=== PATIENT | male | born 1950 | race Caucasian/White ===

== ENCOUNTER 2017-06-30 09:19 | Emergency (ER) | payer MEDICARE ==
[2017-06-30 09:49] VITALS: BP 134/61
--- NOTE | 2017-06-30 10:07 | UC ---
Back Pain HPI - HPI Summary HPI Summary: felt a muscle pull at work lifting a heavy object, pain is located in the right lower lumbar region - History of Current Complaint Chief Complaint: UCBackPain Stated Complaint: BACK PAIN Time Seen by Provider: 06/30/17 09:38 Hx Obtained From: Patient Onset/Duration: Sudden Onset, Lasting Days Timing: Constant Severity Initially: Moderate Severity Currently: Moderate Back Pain: Is Discrete @ - left lumbar Character: Dull, Spasmodic Aggravating Factor(s): Movement - Allergies/Home Medications Allergies/Adverse Reactions: Allergies Allergy/AdvReac Type Severity Reaction Status Date / Time Cephalexin [From Keflex] Allergy Hives Verified 06/30/17 09:43 Home Medications: Home Medications Furosemide TAB* [Lasix TAB*] 20 mg PO DAILY 06/30/17 [History Confirmed 06/30/17 ] Sitagliptin-Metformin HCl [Janumet 50-1000 mg] 1 tab PO BID 06/30/17 [History Confirmed 06/30/17] PMH/Surg Hx/FS Hx/Imm Hx Previously Healthy: Yes - Surgical History Surgical History: Yes Surgery Procedure, Year, and Place: t&a and appy as child, R wrist surgery r/t fx - Family History Known Family History: Positive: Cardiac Disease - Social History Alcohol Use: Occasionally Substance Use Type: None Smoking Status (MU): Former Smoker Have You Smoked in the Last Year: No When Did the Patient Quit Smoking/Using Tobacco: 2000 - Immunization History Most Recent Influenza Vaccination: May 2017 Review of Systems Constitutional: Negative Skin: Negative Eyes: Negative ENT: Negative Respiratory: Negative Cardiovascular: Negative Gastrointestinal: Negative Genitourinary: Negative Motor: Negative Neurovascular: Negative Musculoskeletal: Arthralgia, Myalgia Neurological: Negative Psychological: Negative Is Patient Immunocompromised?: No All Other Systems Reviewed And Are Negative: Yes Physical Exam Triage Information Reviewed: Yes Appearance: Well-Appearing, Pain Distress, Obese Vital Signs: Initial Vital Signs Temp 97.8 F 06/30/17 09:41 Pulse 60 06/30/17 09:41 Resp 16 06/30/17 09:41 BP 134/61 06/30/17 09:41 Pulse Ox 99 06/30/17 09:41 Vital Signs Reviewed: Yes Eye Exam: Normal ENT Exam: Normal Dental Exam: Normal Neck exam: Normal Respiratory Exam: Normal Cardiovascular Exam: Normal Abdominal Exam: Normal Bowel Sounds: Positive: Present Musculoskeletal: Positive: No Edema - palpable spasm, ROM Limited @ - painful to extend, Neurological Exam: Normal Psychological Exam: Normal Skin Exam: Normal Back Pain Course/Dx - Course Course Of Treatment: hx obtained, exam performed, meds reviewed, treated for muscle strain. - Differential Dx/Diagnosis Differential Diagnosis/HQI/PQRI: Fracture, Herniated Disc, Sprain Provider Diagnoses: lumbar strain Discharge - Discharge Plan Condition: Stable Disposition: HOME Prescriptions: Cyclobenzaprine HCl [Flexeril 5 mg (NF)] 5 mg PO BID #14 tab Patient Education Materials: Lower Back Exercises (ED), Acute Low Back Pain (ED ) Referrals: Patricia Mccarthy MD [Primary Care Provider] - Additional Instructions: 1. heat the low back and stretch. 2. you can use ibuprofen 400 mg with tylenol 500 mg together every 6-8 hours. 3. bend at the knees 4. If not improving with rest, follow up.
== END 2017-06-30 10:16 | disposition home or self-care (01) ==
LOC: UCCORT 09:19
DX: S39.012A Strain of muscle, fascia and tendon of lower back, initial encounter (principal); Z87.891 Personal history of nicotine dependence; Z88.1 Allergy status to other antibiotic agents; X50.0XXA Overexertion from strenuous movement or load, initial encounter; Y92.9 Unspecified place or not applicable
CPT/HCPCS: 99212; G0463

== ENCOUNTER 2023-10-20 10:11 | Observation (INO) ==
[2023-10-20] MEDS ORDERED: ceFAZolin 2 GM PREMIX 2 GM/50 ML BAG ONE (10:44)
[2023-10-20 10:52] LABS: Rapid COVID-19 Molecular Undetected (Undetected)
[2023-10-20] MEDS ORDERED: Propofol 10 MG/ML 20 ML BTL ONE ×2 (11:42→15:12)
[2023-10-20] MEDS ORDERED: Lidocaine 2% PF 5 ML VIAL ONE (11:42)
[2023-10-20] MEDS ORDERED: Midazolam 2 mg/2 ml VIAL 1 mg/ml 2 ml VIAL (2 mg) ONE ×2 (11:42→13:27)
[2023-10-20] MEDS ORDERED: fentaNYL 100 mcg/2 ml 50 MCG/ML VIAL ONE ×2 (11:43→17:52)
[2023-10-20] MEDS ORDERED: Ondansetron 4 mg VIAL 2 MG/ML 2 ml VIAL IV PRN ×2 (11:51→16:59)
[2023-10-20] MEDS ORDERED: Naloxone 0.4 mg VIAL 0.4 mg/ml 1 ml VIAL IV PRN (11:51)
[2023-10-20] MEDS ORDERED: HYDROmorphone 1 MG/1 ML SYRINGE IV PRN (11:51)
[2023-10-20] MEDS ORDERED: ROPIVACAINE 5 MG/ML 30 ML BTL (0.5%) ONE ×2 (13:00→13:27)
[2023-10-20] MEDS ORDERED: ceFAZolin 1 GM in Dextrose 1 GM/50 ML BAG ONE (13:35)
[2023-10-20] MEDS ORDERED: fentaNYL 250 mcg/5 ml 50 MCG/ML 5 ml VIAL (250 MCG) ONE (14:27)
[2023-10-20] MEDS ORDERED: Bupivacaine-MPF SPINAL 7.5 MG/ML - 2ML AMP ONE (16:00)
[2023-10-20] MEDS ORDERED: Magnesium Hydroxide LIQ 30 ML UDC PO PRN (16:59)
[2023-10-20] MEDS ORDERED: Ondansetron ODT 4 mg TAB 4 MG TAB PO PRN (16:59)
[2023-10-20] MEDS ORDERED: Lactulose 30 ml UDC PO PRN (16:59)
[2023-10-20] MEDS: fentaNYL 100 mcg/2 ml 50 MCG/ML VIAL IV PRN (17:56)
[2023-10-20] MEDS ORDERED: Acetaminophen IV 1 GM/100ML 1,000 MG/100 ML BAG IV ONE (18:37)
[2023-10-20] MEDS: Acetaminophen IV 1 GM/100ML 1,000 MG/100 ML BAG IV PRN (18:41)
[2023-10-20] MEDS: Magnesium Hydroxide LIQ 30 ML UDC PO SCH (20:32)
[2023-10-20] MEDS: Lactated Ringers 1000 ml BAG 1,000 ML IV SCH ×2 (20:43→21:15)
[2023-10-20] MEDS: Buffered Lidocaine 1% SYRIN 1 ml INTRADERM ONE (20:43)
[2023-10-20] MEDS: ceFAZolin 1 GM ADVAN 1 GM in NS 0.9% 50 ML 50 ML IVPB SCH (22:45)
[2023-10-21] MEDS: Morphine 2 MG/ML SYRINGE IV PRN
[2023-10-21 06:24] LABS: Hematocrit 36.8 % (38-53); Platelet Count 197 10^3/uL (150-450)
[2023-10-21 07:20] LABS: Calcium 8.7 mg/dL (8.6-10.3); Creatinine, Serum 1.78 mg/dL (0.67-1.17); Potassium 5.1 mmol/L (3.5-5.0); eGFR CKD-EPI 40.3 (>60)
[2023-10-21] MEDS: Vitamin THERAPEUTIC TAB PO SCH (08:21)
[2023-10-21] MEDS: CMCS: DAPAGLIFLOZIN 10 MG TAB (NF) PO SCH (08:24)
[2023-10-21 10:52] VITALS: BP 144/74
== END 2023-10-21 14:05 | disposition home or self-care (01) ==
LOC: SSU 10:11 → OR 10:11
PROVIDERS: ADMIT Orthopaedic Surgery Adult Reconstructive Orthopaedic Surgery; ATTEND Orthopaedic Surgery Adult Reconstructive Orthopaedic Surgery

== ENCOUNTER 2024-01-20 19:57 | Inpatient (IN) ==
[2024-01-20] MEDS ORDERED: Vancomycin 2,000 MG in NS 0.9% 250 ml 250 ML IVPB ONE (21:00)
[2024-01-20] MEDS ORDERED: Vancomycin 2,000 MG in NS 0.9% 250 ml 250 ML IVPB SCH (21:00)
[2024-01-20] MEDS ORDERED: Zosyn per Pharmacy NOTE FOLLOW UP SCH (21:00)
[2024-01-20] MEDS: Piperacillin/Tazobac 3.375 BAG 3.375 GM/100 ML BAG IV ONE (21:05)
[2024-01-20] MEDS ORDERED: Vancomycin per Pharmacy 1 EA NOTE FOLLOW UP PRN (21:07)
[2024-01-20 21:12] LABS: ABS Eosinophils 0.1 10^3/uL (0.0-0.5); ABS Monocytes 0.8 10^3/uL (0.0-1.1); ABS Nucleated RBC 0.01 10^3/ul; Eosinophil % 0.9 %; Hematocrit 34.4 % (38-53); Hemoglobin 11.1 g/dL (13.2-16.3); Lymphocyte % 8.8 %; Mean Corpuscular Hemoglobin 26.6 pg (27-33); Mean Corpuscular Hgb Conc 32.4 g/dL (31-36); Mean Corpuscular Volume 82.3 fL (80-97); Mean Platelet Volume 7.5 fL (7.5-11.2); Platelet Count 281 10^3/uL (150-450); Red Blood Count 4.19 10^6/uL (4.06-5.63); Red Cell Distribution Width 18.4 % (12-17); White Blood Count 10.9 10^3/uL (3.6-10.2)
[2024-01-20] MEDS: Lactated Ringers 1000 ml BAG 1,000 ML IV ONE ×2 (21:15→23:11)
[2024-01-20 21:36] LABS: Urine Appearance Clear; Urine Bilirubin Negative (Negative); Urine Blood Negative (Negative); Urine Color Light-Yellow; Urine Glucose 4+ (>=1000 mg/dL) (Negative); Urine Ketones Negative (Negative); Urine Nitrite Negative (Negative); Urine Protein Trace (Negative); Urine Urobilinogen Negative (Negative)
[2024-01-20 21:47] LABS: Activated Partial Thrombo Time 37.1 seconds (26.0-38.0)
[2024-01-20 21:50] LABS: INR 1.56 (0.83-1.13)
[2024-01-20 22:03] LABS: Albumin 3.5 g/dL (3.2-5.2); C Reactive Protein 144.72 mg/L (<8.01); Calcium 8.5 mg/dL (8.6-10.3); Creatinine, Serum 1.85 mg/dL (0.67-1.17); Globulin 3.4 g/dL (2-4); Potassium 4.6 mmol/L (3.5-5.0); Total Bilirubin 0.5 mg/dL (0.2-1.0); Total Protein 6.9 g/dL (6.4-8.9); eGFR CKD-EPI 38.5 (>60)
[2024-01-20] MEDS: Vancomycin 2,000 MG in NS 0.9% 500 ml BAG 500 ML IVPB ONE (22:30)
[2024-01-20] MEDS: Digoxin IV 0.5 MG/2 ML AMP (0.25 MG/ML) IV SLOW PU ONE (22:33)
[2024-01-21] MEDS: ZOSYN 3.375 GM Q8H per EXTENDED INFUSION IV SCH (01:30)
[2024-01-21] MEDS ORDERED: Dextrose 50% Syringe 50 ml 25 GM/50 ML SYRINGE IV PUSH PRN (02:37)
[2024-01-21] MEDS: Lactated Ringers 1000 ml BAG 1,000 ML IV ONE ×2 (03:09→14:48)
[2024-01-21 04:08] LABS: High Sensitivity Troponin 1 Hr 9 pg/mL (<20)
[2024-01-21 05:33] LABS: ABS Basophils 0.1 10^3/uL (0.0-0.1); ABS Eosinophils 0.1 10^3/uL (0.0-0.5); ABS Lymphocytes 1.9 10^3/uL (1.0-4.8); ABS Neutrophils 7.5 10^3/uL (1.5-7.6); ABS Nucleated RBC 0.01 10^3/ul; Eosinophil % 1.1 %; Hematocrit 31.7 % (38-53); Hemoglobin 10.3 g/dL (13.2-16.3); Lymphocyte % 17.5 %; Mean Corpuscular Hgb Conc 32.6 g/dL (31-36); Mean Corpuscular Volume 82.8 fL (80-97); Mean Platelet Volume 7.3 fL (7.5-11.2); Nucleated Red Blood Cells % 0.1 %/100WBC (0.0-0.8); Platelet Count 224 10^3/uL (150-450); Red Blood Count 3.83 10^6/uL (4.06-5.63); Red Cell Distribution Width 17.9 % (12-17); White Blood Count 10.6 10^3/uL (3.6-10.2)
[2024-01-21 06:09] LABS: ALT 7 U/L (7-52); AST 10 U/L (13-39); Albumin 3.1 g/dL (3.2-5.2); Albumin/Globulin Ratio 1.2 (1-3); Alkaline Phosphatase 55 U/L (35-149); Anion Gap 6 mmol/L (2-16); Blood Urea Nitrogen 23 mg/dL (6-24); CO2 Carbon Dioxide 27 mmol/L (22-32); Calcium 8.2 mg/dL (8.6-10.3); Chloride 106 mmol/L (101-111); Creatinine, Serum 1.65 mg/dL (0.67-1.17); Globulin 2.6 g/dL (2-4); Glucose 61 mg/dL (70-100); Sodium 139 mmol/L (135-145); Total Bilirubin 0.6 mg/dL (0.2-1.0); Total Protein 5.7 g/dL (6.4-8.9); eGFR CKD-EPI 44.1 (>60)
[2024-01-21 06:51] LABS: % Iron Saturation 8 % (15-55); .Transferrin 176 mg/dL (203-362); Iron < 20 ug/dL (50-212); Total Iron Binding Capacity 246 mcg/dL (250-450); Unsaturated Iron Binding 226 ug/dL
[2024-01-21 07:11] LABS: Ferritin 77.9 ng/mL (24-336)
[2024-01-21] MEDS: Vancomycin 1,500 MG in NS 0.9% 250 ml 250 ML IVPB SCH ×2 (23:16→23:20)
[2024-01-22] MEDS: Acetaminophen IV 1 GM/100ML 1,000 MG/100 ML BAG IV ONE (01:51)
[2024-01-22 06:51] LABS: ABS Basophils 0.1 10^3/uL (0.0-0.1); ABS Eosinophils 0.2 10^3/uL (0.0-0.5); ABS Lymphocytes 1.6 10^3/uL (1.0-4.8); ABS Monocytes 0.9 10^3/uL (0.0-1.1); ABS Neutrophils 7.4 10^3/uL (1.5-7.6); ABS Nucleated RBC 0.01 10^3/ul; Eosinophil % 1.6 %; Hematocrit 32.1 % (38-53); Hemoglobin 10.4 g/dL (13.2-16.3); Lymphocyte % 16.2 %; Mean Corpuscular Hgb Conc 32.4 g/dL (31-36); Mean Corpuscular Volume 83.2 fL (80-97); Mean Platelet Volume 7.8 fL (7.5-11.2); Nucleated Red Blood Cells % 0.1 %/100WBC (0.0-0.8); Platelet Count 210 10^3/uL (150-450); Red Blood Count 3.85 10^6/uL (4.06-5.63); Red Cell Distribution Width 18.3 % (12-17); White Blood Count 10.2 10^3/uL (3.6-10.2)
[2024-01-22 07:19] LABS: Anion Gap 10 mmol/L (2-16); Blood Urea Nitrogen 21 mg/dL (6-24); CO2 Carbon Dioxide 27 mmol/L (22-32); Calcium 8.3 mg/dL (8.6-10.3); Chloride 103 mmol/L (101-111); Creatinine, Serum 1.61 mg/dL (0.67-1.17); Glucose 78 mg/dL (70-100); Sodium 140 mmol/L (135-145); eGFR CKD-EPI 45.4 (>60)
[2024-01-22 08:34] LABS: Magnesium 2.1 mg/dL (1.9-2.7); Potassium Redraw 4.3 mmol/L (3.5-5.0)
[2024-01-22] MEDS: CMC:DAPAGLIFLOZIN 10 MG TAB (NF) PO SCH (09:14)
[2024-01-22] MEDS ORDERED: Sulfur Hexaflouride MICROSPHR 25 MG VIAL IV ONE (11:33)
[2024-01-22] MEDS: Metoprolol Tartrate 5 mg VIAL 5 ml VIAL (1 mg/ml) IV ONE (17:08)
[2024-01-22] MEDS: Metoprolol Tartrate 5 mg VIAL 5 ml VIAL (1 mg/ml) IV PRN (20:12)
[2024-01-23 06:14] LABS: ABS Basophils 0.1 10^3/uL (0.0-0.1); ABS Eosinophils 0.2 10^3/uL (0.0-0.5); ABS Lymphocytes 1.4 10^3/uL (1.0-4.8); ABS Monocytes 0.9 10^3/uL (0.0-1.1); Eosinophil % 1.9 %; Hematocrit 29.9 % (38-53); Hemoglobin 9.7 g/dL (13.2-16.3); Lymphocyte % 14.9 %; Mean Corpuscular Hgb Conc 32.5 g/dL (31-36); Mean Corpuscular Volume 83.1 fL (80-97); Mean Platelet Volume 7.7 fL (7.5-11.2); Platelet Count 197 10^3/uL (150-450); Red Cell Distribution Width 18.1 % (12-17); White Blood Count 9.5 10^3/uL (3.6-10.2)
[2024-01-23 06:38] LABS: Calcium 8.2 mg/dL (8.6-10.3); Creatinine, Serum 1.63 mg/dL (0.67-1.17); Potassium 4.3 mmol/L (3.5-5.0); eGFR CKD-EPI 44.8 (>60)
[2024-01-23] MEDS: Sulfur Hexaflouride MICROSPHR 25 MG VIAL IV ONE (10:45)
[2024-01-23] MEDS: Vancomycin Trough Check NOTE FOLLOW UP ONE (23:39)
[2024-01-24 06:10] LABS: ABS Eosinophils 0.2 10^3/uL (0.0-0.5); ABS Lymphocytes 1.4 10^3/uL (1.0-4.8); ABS Monocytes 0.8 10^3/uL (0.0-1.1); ABS Neutrophils 5.9 10^3/uL (1.5-7.6); Eosinophil % 2.5 %; Hematocrit 29.3 % (38-53); Hemoglobin 9.5 g/dL (13.2-16.3); Lymphocyte % 16.6 %; Mean Corpuscular Hemoglobin 26.6 pg (27-33); Mean Corpuscular Hgb Conc 32.3 g/dL (31-36); Mean Corpuscular Volume 82.4 fL (80-97); Mean Platelet Volume 7.7 fL (7.5-11.2); Platelet Count 215 10^3/uL (150-450); Red Blood Count 3.56 10^6/uL (4.06-5.63); Red Cell Distribution Width 17.9 % (12-17); White Blood Count 8.3 10^3/uL (3.6-10.2)
[2024-01-24 07:35] LABS: Calcium 8.2 mg/dL (8.6-10.3); Creatinine, Serum 1.43 mg/dL (0.67-1.17); Magnesium 1.9 mg/dL (1.9-2.7); Potassium 4.4 mmol/L (3.5-5.0); eGFR CKD-EPI 52.4 (>60)
[2024-01-24] MEDS: Magnesium Sulfate 2 gm BAG 2 GM/50 ML BAG IVPB ONE (10:03)
[2024-01-24] MEDS: Enoxaparin 100 MG/ML SYR SUBCUT SCH (12:41)
[2024-01-24] MEDS: Iodixanol (CONTRAST) 320 MG/ML 100 ML SDV IV ONE (16:07)
[2024-01-25 06:33] LABS: ABS Basophils 0.1 10^3/uL (0.0-0.1); ABS Eosinophils 0.2 10^3/uL (0.0-0.5); ABS Lymphocytes 1.3 10^3/uL (1.0-4.8); ABS Monocytes 0.8 10^3/uL (0.0-1.1); ABS Neutrophils 6.2 10^3/uL (1.5-7.6); ABS Nucleated RBC 0.01 10^3/ul; Eosinophil % 2.9 %; Hematocrit 29.8 % (38-53); Hemoglobin 9.6 g/dL (13.2-16.3); Lymphocyte % 15.1 %; Mean Corpuscular Hemoglobin 26.4 pg (27-33); Mean Corpuscular Hgb Conc 32.2 g/dL (31-36); Mean Corpuscular Volume 82.1 fL (80-97); Mean Platelet Volume 7.5 fL (7.5-11.2); Nucleated Red Blood Cells % 0.1 %/100WBC (0.0-0.8); Platelet Count 229 10^3/uL (150-450); Red Blood Count 3.63 10^6/uL (4.06-5.63); Red Cell Distribution Width 18.2 % (12-17); White Blood Count 8.6 10^3/uL (3.6-10.2)
[2024-01-25 07:17] LABS: Calcium 8.4 mg/dL (8.6-10.3); Creatinine, Serum 1.25 mg/dL (0.67-1.17); Magnesium 2.2 mg/dL (1.9-2.7); Potassium 4.4 mmol/L (3.5-5.0); eGFR CKD-EPI 61.6 (>60)
[2024-01-26 08:15] LABS: ABS Basophils 0.1 10^3/uL (0.0-0.1); ABS Eosinophils 0.3 10^3/uL (0.0-0.5); ABS Monocytes 0.6 10^3/uL (0.0-1.1); ABS Nucleated RBC 0.01 10^3/ul; Eosinophil % 4.4 %; Hematocrit 31.6 % (38-53); Lymphocyte % 14.6 %; Mean Corpuscular Hemoglobin 26.5 pg (27-33); Mean Corpuscular Hgb Conc 31.8 g/dL (31-36); Mean Corpuscular Volume 83.4 fL (80-97); Mean Platelet Volume 7.7 fL (7.5-11.2); Nucleated Red Blood Cells % 0.1 %/100WBC (0.0-0.8); Platelet Count 245 10^3/uL (150-450); Red Blood Count 3.79 10^6/uL (4.06-5.63); Red Cell Distribution Width 18.3 % (12-17); White Blood Count 7.1 10^3/uL (3.6-10.2)
[2024-01-26 08:33] LABS: Calcium 8.3 mg/dL (8.6-10.3); Creatinine, Serum 1.17 mg/dL (0.67-1.17); Potassium 4.7 mmol/L (3.5-5.0); eGFR CKD-EPI 66.6 (>60)
[2024-01-26] MEDS: Vancomycin Trough Check NOTE FOLLOW UP ONE (08:56)
[2024-01-27 06:27] LABS: ABS Basophils 0.1 10^3/uL (0.0-0.1); ABS Eosinophils 0.3 10^3/uL (0.0-0.5); ABS Lymphocytes 1.1 10^3/uL (1.0-4.8); ABS Monocytes 0.7 10^3/uL (0.0-1.1); ABS Neutrophils 4.8 10^3/uL (1.5-7.6); ABS Nucleated RBC 0.01 10^3/ul; Eosinophil % 4.5 %; Hemoglobin 9.6 g/dL (13.2-16.3); Lymphocyte % 15.5 %; Mean Corpuscular Hemoglobin 25.9 pg (27-33); Mean Corpuscular Hgb Conc 31.1 g/dL (31-36); Mean Corpuscular Volume 83.2 fL (80-97); Mean Platelet Volume 7.7 fL (7.5-11.2); Nucleated Red Blood Cells % 0.1 %/100WBC (0.0-0.8); Platelet Count 268 10^3/uL (150-450); Red Blood Count 3.73 10^6/uL (4.06-5.63); Red Cell Distribution Width 18.3 % (12-17)
[2024-01-27 08:38] LABS: Calcium 8.1 mg/dL (8.6-10.3); Magnesium 1.9 mg/dL (1.9-2.7); Potassium 4.7 mmol/L (3.5-5.0)
[2024-01-27 09:13] LABS: Creatinine, Serum 1.09 mg/dL (0.67-1.17); eGFR CKD-EPI 72.6 (>60)
[2024-01-27] MEDS: Magnesium Sulfate IV 1GM/100ML 1 GM/100 ML BAG IV ONE (11:01)
[2024-01-27] MEDS ORDERED: Naloxone 0.4 mg VIAL 0.4 mg/ml 1 ml VIAL IV PRN (11:52)
[2024-01-27] MEDS ORDERED: fentaNYL 100 mcg/2 ml 50 MCG/ML VIAL IV PRN (11:52)
[2024-01-27] MEDS ORDERED: Ondansetron 4 mg VIAL 2 MG/ML 2 ml VIAL IV PRN (11:52)
[2024-01-27] MEDS ORDERED: Lidocaine 2% PF 5 ML VIAL ONE (13:21)
[2024-01-27] MEDS ORDERED: Propofol 10 MG/ML 20 ML BTL ONE (13:21)
[2024-01-27] MEDS ORDERED: Midazolam 2 mg/2 ml VIAL 1 mg/ml 2 ml VIAL (2 mg) ONE (13:22)
[2024-01-27] MEDS ORDERED: fentaNYL 100 mcg/2 ml 50 MCG/ML VIAL ONE (13:22)
[2024-01-27] MEDS ORDERED: Rocuronium 50 mg VIAL 10 mg/ml 5 ml VIAL (50 mg) ONE ×2 (14:47→14:53)
[2024-01-27] MEDS ORDERED: Dexamethasone IV 4 MG/ML VIAL 1 ml VIAL ONE (15:21)
[2024-01-27] MEDS ORDERED: Ondansetron 4 mg VIAL 2 MG/ML 2 ml VIAL ONE (15:21)
[2024-01-27] MEDS: Lactated Ringers 1000 ml BAG 1,000 ML IV SCH (16:45)
[2024-01-27] MEDS: Scopolamine 1 mg/72hr PATCH TRANSDERM ONE (16:45)
[2024-01-27] MEDS: Buffered Lidocaine 1% SYRIN 1 ml INTRADERM ONE (16:48)
[2024-01-27 17:03] VITALS: BP 152/87
[2024-01-27] MEDS ORDERED: Vancomycin Trough Check NOTE FOLLOW UP ONE (21:30)
== END 2024-01-27 17:40 | disposition home or self-care (01) | DRG 853 ==
LOC: ED 19:57 → EDHOLD 19:57 → SUATTDRO 01-21 00:31 → MEDTELE 01-21 14:27
PROVIDERS: ADMIT Student in an Organized Health Care Education/Training Program; ATTEND Internal Medicine

== ENCOUNTER 2024-02-11 09:55 | Inpatient (IN) ==
[2024-02-11] MEDS: Lactated Ringers SEPSIS* BAG 2,260 ML IV ONE (10:58)
[2024-02-11 11:11] LABS: ABS Eosinophils 0.1 10^3/uL (0.0-0.5); ABS Lymphocytes 0.2 10^3/uL (1.0-4.8); ABS Monocytes 0.7 10^3/uL (0.0-1.1); ABS Neutrophils 10.9 10^3/uL (1.5-7.6); ABS Nucleated RBC 0.01 10^3/ul; Eosinophil % 0.8 %; Hematocrit 33.5 % (38-53); Hemoglobin 10.4 g/dL (13.2-16.3); Lymphocyte % 1.7 %; Mean Corpuscular Hemoglobin 25.9 pg (27-33); Mean Corpuscular Hgb Conc 31.2 g/dL (31-36); Mean Corpuscular Volume 82.9 fL (80-97); Mean Platelet Volume 7.4 fL (7.5-11.2); Nucleated Red Blood Cells % 0.1 %/100WBC (0.0-0.8); Platelet Count 169 10^3/uL (150-450); Red Blood Count 4.04 10^6/uL (4.06-5.63); Red Cell Distribution Width 18.8 % (12-17); White Blood Count 11.9 10^3/uL (3.6-10.2)
[2024-02-11 11:19] LABS: Activated Partial Thrombo Time 34.9 seconds (26.0-38.0); INR 1.52 (0.83-1.13)
[2024-02-11 11:36] LABS: High Sens Troponin Baseline 49 pg/mL (<20)
[2024-02-11 11:52] LABS: ALT 12 U/L (7-52); AST 15 U/L (13-39); Albumin 3.4 g/dL (3.2-5.2); Albumin/Globulin Ratio 1.1 (1-3); Alkaline Phosphatase 47 U/L (35-149); Anion Gap 14 mmol/L (2-16); Blood Urea Nitrogen 36 mg/dL (6-24); C Reactive Protein 77.21 mg/L (<8.01); CO2 Carbon Dioxide 23 mmol/L (22-32); Calcium 8.2 mg/dL (8.6-10.3); Chloride 100 mmol/L (101-111); Creatinine, Serum 2.93 mg/dL (0.67-1.17); Glucose 114 mg/dL (70-100); Lipase < 10 U/L (11.0-82.0); Potassium 4.5 mmol/L (3.5-5.0); Sodium 137 mmol/L (135-145); Total Bilirubin 0.7 mg/dL (0.2-1.0); Total Protein 6.4 g/dL (6.4-8.9); eGFR CKD-EPI 22.2 (>60)
[2024-02-11] MEDS: Vancomycin 2,000 MG in NS 0.9% 500 ml BAG 500 ML IVPB ONE (12:09)
[2024-02-11 13:04] LABS: High Sensitivity Troponin 1 Hr 56 pg/mL (<20)
[2024-02-11] MEDS: Ondansetron 4 mg VIAL 2 MG/ML 2 ml VIAL IV ONE (15:41)
[2024-02-11] MEDS: Acetaminophen IV 1 GM/100ML 1,000 MG/100 ML BAG IV ONE (15:41)
[2024-02-11] MEDS: Clindamycin 900 MG/D5W BAG 900 MG/50 ML BAG IVPB ONE (16:22)
[2024-02-11] MEDS: Norepinephrine 4 MG/250mL D5W 4,000 MCG/250 ML BAG IV SCH (17:16)
[2024-02-11 17:44] LABS: High Sensitivity Troponin 3 Hr 80 pg/mL (<20)
[2024-02-11] MEDS: Famotidine IV 10 MG/ML 2 ml VIAL (20 mg) IV SLOW PU ONE (17:58)
[2024-02-11] MEDS: Piperacillin/Tazobac 3.375 BAG 3.375 GM/100 ML BAG IV ONE (18:32)
[2024-02-11] MEDS ORDERED: Vancomycin per Pharmacy 1 EA NOTE FOLLOW UP SCH (19:00)
[2024-02-11] MEDS ORDERED: Zosyn per Pharmacy NOTE FOLLOW UP SCH (19:00)
[2024-02-11] MEDS ORDERED: Dextrose 50% Syringe 50 ml 25 GM/50 ML SYRINGE IV PUSH PRN (19:17)
[2024-02-11] MEDS ORDERED: Ondansetron 4 mg VIAL 2 MG/ML 2 ml VIAL IV PRN (19:27)
[2024-02-11 20:05] LABS: ABS Eosinophils 0.2 10^3/uL (0.0-0.5); ABS Lymphocytes 0.3 10^3/uL (1.0-4.8); ABS Monocytes 0.7 10^3/uL (0.0-1.1); ABS Neutrophils 10.1 10^3/uL (1.5-7.6); ABS Nucleated RBC 0.02 10^3/ul; Eosinophil % 1.8 %; Hematocrit 37.1 % (38-53); Hemoglobin 11.7 g/dL (13.2-16.3); Lymphocyte % 2.4 %; Mean Corpuscular Hemoglobin 26.4 pg (27-33); Mean Corpuscular Hgb Conc 31.5 g/dL (31-36); Mean Corpuscular Volume 83.9 fL (80-97); Mean Platelet Volume 7.6 fL (7.5-11.2); Nucleated Red Blood Cells % 0.1 %/100WBC (0.0-0.8); Platelet Count 154 10^3/uL (150-450); Red Blood Count 4.42 10^6/uL (4.06-5.63); Red Cell Distribution Width 19.2 % (12-17); White Blood Count 11.4 10^3/uL (3.6-10.2)
[2024-02-11 20:09] LABS: Albumin 3.5 g/dL (3.2-5.2); Albumin/Globulin Ratio 1.1 (1-3); Calcium 8.2 mg/dL (8.6-10.3); Creatinine, Serum 3.11 mg/dL (0.67-1.17); Globulin 3.1 g/dL (2-4); Magnesium 1.8 mg/dL (1.9-2.7); Phosphorus 2.9 mg/dL (2.5-5.0); Potassium 4.4 mmol/L (3.5-5.0); Total Bilirubin 0.7 mg/dL (0.2-1.0); Total Protein 6.6 g/dL (6.4-8.9); eGFR CKD-EPI 20.6 (>60)
[2024-02-11] MEDS: Heparin 5000 UNITS/ML 1 mL VIAL IV SCH (20:22)
[2024-02-11] MEDS: Heparin DRIP 25,000 UNITS BAG 25,000 UNITS/250 ML BAG IV SCH (20:25)
[2024-02-11 21:09] LABS: High Sensitivity Troponin 1 Hr 83 pg/mL (<20)
[2024-02-11] MEDS: ZOSYN 3.375 GM Q8H per EXTENDED INFUSION IV SCH (22:44)
[2024-02-12] MEDS: ZOSYN 3.375 GM Q8H per EXTENDED INFUSION IV SCH (02:12)
[2024-02-12 05:57] LABS: ABS Eosinophils 0.4 10^3/uL (0.0-0.5); ABS Lymphocytes 0.5 10^3/uL (1.0-4.8); ABS Monocytes 0.4 10^3/uL (0.0-1.1); ABS Neutrophils 7.1 10^3/uL (1.5-7.6); Eosinophil % 4.3 %; Hematocrit 29.4 % (38-53); Hemoglobin 9.6 g/dL (13.2-16.3); Lymphocyte % 5.7 %; Mean Corpuscular Hemoglobin 26.6 pg (27-33); Mean Corpuscular Hgb Conc 32.5 g/dL (31-36); Mean Corpuscular Volume 81.8 fL (80-97); Mean Platelet Volume 7.3 fL (7.5-11.2); Platelet Count 123 10^3/uL (150-450); Red Cell Distribution Width 18.6 % (12-17); White Blood Count 8.4 10^3/uL (3.6-10.2)
[2024-02-12 06:55] LABS: C Reactive Protein 162.85 mg/L (<8.01); Calcium 7.7 mg/dL (8.6-10.3); Creatinine, Serum 3.12 mg/dL (0.67-1.17); Magnesium 1.8 mg/dL (1.9-2.7); Phosphorus 3.4 mg/dL (2.5-5.0); Potassium 4.1 mmol/L (3.5-5.0); Vancomycin Random 10.6 mcg/mL; eGFR CKD-EPI 20.5 (>60)
[2024-02-12] MEDS: Vancomycin Random Level NOTE FOLLOW UP ONE (08:15)
[2024-02-12] MEDS: Pantoprazole VIAL 40 MG VIAL IV SCH (08:15)
[2024-02-12] MEDS: Magnesium Sulfate 2 gm BAG 2 GM/50 ML BAG IVPB ONE (08:15)
[2024-02-12] MEDS: Vancomycin 1,500 MG in NS 0.9% 250 ml 250 ML IVPB ONE (08:16)
[2024-02-12] MEDS: Lactated Ringers 1000 ml BAG 1,000 ML IV ONE (10:07)
[2024-02-12 10:29] LABS: Urine Appearance Turbid; Urine Bilirubin Negative (Negative); Urine Blood Negative (Negative); Urine Color Yellow; Urine Glucose Trace (Negative); Urine Ketones Negative (Negative); Urine Nitrite Negative (Negative); Urine Protein Trace (Negative); Urine Specific Gravity 1.024 (1.002-1.030); Urine Urobilinogen Negative (Negative)
[2024-02-12 11:15] LABS: Urine Bacteria Absent /HPF (Absent); Urine Red Blood Cell Trace(0-2/hpf) /HPF (0-Trace); Urine Squamous Epithelial Cell Present /HPF (Absent); Urine Transitional Epithelial Present /HPF (Absent); Urine White Blood Cell 1+(6-10/hpf) /HPF (0-Trace)
[2024-02-12] MEDS: Lactated Ringers 1000 ml BAG 500 ML IV ONE (13:58)
[2024-02-13 04:26] LABS: Hematocrit 26.5 % (38-53); Hemoglobin 8.9 g/dL (13.2-16.3); Mean Corpuscular Hemoglobin 27.3 pg (27-33); Mean Corpuscular Hgb Conc 33.4 g/dL (31-36); Mean Corpuscular Volume 81.7 fL (80-97); Mean Platelet Volume 7.5 fL (7.5-11.2); Platelet Count 106 10^3/uL (150-450); Red Blood Count 3.24 10^6/uL (4.06-5.63); Red Cell Distribution Width 19.3 % (12-17); White Blood Count 5.4 10^3/uL (3.6-10.2)
[2024-02-13 05:26] LABS: Albumin 2.7 g/dL (3.2-5.2); Calcium 7.6 mg/dL (8.6-10.3); Creatinine, Serum 2.55 mg/dL (0.67-1.17); Globulin 2.7 g/dL (2-4); Magnesium 2.2 mg/dL (1.9-2.7); Potassium 4.2 mmol/L (3.5-5.0); Total Bilirubin 0.4 mg/dL (0.2-1.0); Total Protein 5.4 g/dL (6.4-8.9); Vancomycin Random 13.9 mcg/mL; eGFR CKD-EPI 26.2 (>60)
[2024-02-13 05:35] LABS: ABS Eosinophils 0.4 10^3/uL (0.0-0.5); ABS Lymphocytes 0.8 10^3/uL (1.0-4.8); ABS Monocytes 0.4 10^3/uL (0.0-1.1); ABS Neutrophils 3.8 10^3/uL (1.5-7.6); ABS Nucleated RBC 0.01 10^3/ul; Lymphocyte % 14.3 %; Nucleated Red Blood Cells % 0.2 %/100WBC (0.0-0.8)
[2024-02-13 05:36] LABS: Anisocytosis 1+
[2024-02-13] MEDS: Vancomycin Random Level NOTE FOLLOW UP ONE (06:09)
[2024-02-13] MEDS: Lactated Ringers 1000 ml BAG 500 ML IV ONE (08:40)
[2024-02-13] MEDS: Vancomycin 1,500 MG in NS 0.9% 250 ml 250 ML IVPB ONE (11:04)
[2024-02-13] MEDS ORDERED: Heparin 5000 UNITS/ML 1 mL VIAL IV SCH (17:00)
[2024-02-13] MEDS: Enoxaparin 100 MG/ML SYR SUBCUT SCH (18:18)
[2024-02-13 18:38] LABS: ABS Eosinophils 0.4 10^3/uL (0.0-0.5); ABS Monocytes 0.3 10^3/uL (0.0-1.1); ABS Neutrophils 3.2 10^3/uL (1.5-7.6); ABS Nucleated RBC 0.01 10^3/ul; Eosinophil % 8.4 %; Hematocrit 30.8 % (38-53); Hemoglobin 9.7 g/dL (13.2-16.3); Lymphocyte % 19.6 %; Mean Corpuscular Hgb Conc 31.5 g/dL (31-36); Mean Corpuscular Volume 82.7 fL (80-97); Mean Platelet Volume 7.6 fL (7.5-11.2); Nucleated Red Blood Cells % 0.1 %/100WBC (0.0-0.8); Platelet Count 122 10^3/uL (150-450); Red Blood Count 3.73 10^6/uL (4.06-5.63); Red Cell Distribution Width 19.2 % (12-17)
[2024-02-13 19:01] LABS: Creatinine, Serum 2.13 mg/dL (0.67-1.17); eGFR CKD-EPI 32.5 (>60)
[2024-02-13] MEDS: Heparin DRIP 25,000 UNITS BAG 25,000 UNITS/250 ML BAG IV SCH (21:44)
[2024-02-14 05:14] LABS: ABS Eosinophils 0.4 10^3/uL (0.0-0.5); ABS Lymphocytes 1.3 10^3/uL (1.0-4.8); ABS Monocytes 0.4 10^3/uL (0.0-1.1); ABS Neutrophils 2.1 10^3/uL (1.5-7.6); ABS Nucleated RBC 0.01 10^3/ul; Eosinophil % 8.8 %; Hematocrit 26.9 % (38-53); Hemoglobin 8.8 g/dL (13.2-16.3); Lymphocyte % 30.7 %; Mean Corpuscular Hemoglobin 26.9 pg (27-33); Mean Corpuscular Hgb Conc 32.7 g/dL (31-36); Mean Corpuscular Volume 82.4 fL (80-97); Mean Platelet Volume 7.7 fL (7.5-11.2); Nucleated Red Blood Cells % 0.1 %/100WBC (0.0-0.8); Platelet Count 100 10^3/uL (150-450); Red Blood Count 3.26 10^6/uL (4.06-5.63); Red Cell Distribution Width 19.4 % (12-17); White Blood Count 4.2 10^3/uL (3.6-10.2)
[2024-02-14 05:29] LABS: Calcium 7.9 mg/dL (8.6-10.3); Creatinine, Serum 1.85 mg/dL (0.67-1.17); Potassium 4.6 mmol/L (3.5-5.0); Vancomycin Random 16.5 mcg/mL; eGFR CKD-EPI 38.5 (>60)
[2024-02-14] MEDS ORDERED: Vancomycin Random Level NOTE FOLLOW UP ONE (06:00)
[2024-02-14 10:56] LABS: Ferritin 129.3 ng/mL (24-336)
[2024-02-14 11:37] LABS: C Reactive Protein 66.08 mg/L (<8.01)
[2024-02-15 05:49] LABS: Hematocrit 26.4 % (38-53); Hemoglobin 8.7 g/dL (13.2-16.3); Mean Corpuscular Hemoglobin 27.2 pg (27-33); Mean Corpuscular Hgb Conc 32.8 g/dL (31-36); Mean Corpuscular Volume 82.9 fL (80-97); Mean Platelet Volume 7.9 fL (7.5-11.2); Platelet Count 106 10^3/uL (150-450); Red Blood Count 3.19 10^6/uL (4.06-5.63); Red Cell Distribution Width 19.4 % (12-17); White Blood Count 4.6 10^3/uL (3.6-10.2)
[2024-02-15 06:07] LABS: Calcium 8.2 mg/dL (8.6-10.3); Creatinine, Serum 1.39 mg/dL (0.67-1.17); Potassium 4.7 mmol/L (3.5-5.0); eGFR CKD-EPI 54.2 (>60)
[2024-02-15] MEDS ORDERED: Naloxone 0.4 mg VIAL 0.4 mg/ml 1 ml VIAL IV PRN (16:14)
[2024-02-15] MEDS ORDERED: fentaNYL 100 mcg/2 ml 50 MCG/ML VIAL IV PRN (16:14)
[2024-02-16 06:56] LABS: ABS Eosinophils 0.3 10^3/uL (0.0-0.5); ABS Lymphocytes 1.2 10^3/uL (1.0-4.8); ABS Monocytes 0.5 10^3/uL (0.0-1.1); ABS Neutrophils 3.4 10^3/uL (1.5-7.6); Eosinophil % 4.9 %; Hematocrit 27.4 % (38-53); Lymphocyte % 22.1 %; Mean Corpuscular Hemoglobin 27.3 pg (27-33); Mean Corpuscular Hgb Conc 32.7 g/dL (31-36); Mean Corpuscular Volume 83.3 fL (80-97); Mean Platelet Volume 7.8 fL (7.5-11.2); Platelet Count 109 10^3/uL (150-450); Red Blood Count 3.29 10^6/uL (4.06-5.63); Red Cell Distribution Width 19.1 % (12-17); White Blood Count 5.3 10^3/uL (3.6-10.2)
[2024-02-16 07:25] LABS: Calcium 8.4 mg/dL (8.6-10.3); Creatinine, Serum 1.19 mg/dL (0.67-1.17); Potassium 5.3 mmol/L (3.5-5.0); eGFR CKD-EPI 65.3 (>60)
[2024-02-16] MEDS: Buffered Lidocaine 1% SYRIN 1 ml INTRADERM ONE (08:51)
[2024-02-16] MEDS: Lactated Ringers 1000 ml BAG 1,000 ML IV SCH (08:52)
[2024-02-16] MEDS: SODIUM ZIRCONIUM CYCLOSILICATE 10 GM PACKET PO ONE (10:47)
[2024-02-17 06:02] LABS: Calcium 8.2 mg/dL (8.6-10.3); Creatinine, Serum 1.21 mg/dL (0.67-1.17); Potassium 4.8 mmol/L (3.5-5.0)
[2024-02-17 06:22] LABS: Hematocrit 26.8 % (38-53); Hemoglobin 8.5 g/dL (13.2-16.3); Mean Corpuscular Hemoglobin 26.5 pg (27-33); Mean Corpuscular Hgb Conc 31.8 g/dL (31-36); Mean Corpuscular Volume 83.5 fL (80-97); Mean Platelet Volume 8.1 fL (7.5-11.2); Platelet Count 131 10^3/uL (150-450); Red Blood Count 3.21 10^6/uL (4.06-5.63); Red Cell Distribution Width 19.9 % (12-17); White Blood Count 5.5 10^3/uL (3.6-10.2)
[2024-02-17] MEDS ORDERED: Lidocaine 1% VIAL 10 MG/ML 30 ML VIAL ONE (10:54)
[2024-02-17] MEDS ORDERED: Iohexol 350 (CONTRAST) 100 ML PAK IV ONE (10:54)
[2024-02-17] MEDS ORDERED: Heparin 2 UNITS/ML IVPREMIX 3,000 UNIT/1,500 ML BAG IV ONE (10:54)
[2024-02-17] MEDS ORDERED: Midazolam 5 mg/5 ml VIAL 1 mg/ml 5 ml VIAL (5 mg) ONE (10:56)
[2024-02-17] MEDS ORDERED: fentaNYL 100 mcg/2 ml 50 MCG/ML VIAL ONE (10:56)
[2024-02-17] MEDS ORDERED: Heparin 1,000 UNIT/ML 10 ml (10,000 UNITS) CATHLAB/DIALYSIS ONE (10:56)
[2024-02-17] MEDS: Midazolam 10 mg/10 ml VIAL 1 mg/ml 10 ml VIAL (10 mg) IV SLOW PU ONE (13:30)
[2024-02-19 09:48] LABS: ABS Basophils 0.1 10^3/uL (0.0-0.1); ABS Eosinophils 0.3 10^3/uL (0.0-0.5); ABS Lymphocytes 1.1 10^3/uL (1.0-4.8); ABS Monocytes 0.3 10^3/uL (0.0-1.1); ABS Neutrophils 3.3 10^3/uL (1.5-7.6); Eosinophil % 5.7 %; Hematocrit 29.4 % (38-53); Hemoglobin 9.1 g/dL (13.2-16.3); Lymphocyte % 22.5 %; Mean Corpuscular Hemoglobin 25.9 pg (27-33); Mean Corpuscular Hgb Conc 30.8 g/dL (31-36); Mean Corpuscular Volume 84.2 fL (80-97); Mean Platelet Volume 7.9 fL (7.5-11.2); Platelet Count 198 10^3/uL (150-450); Red Cell Distribution Width 19.9 % (12-17); White Blood Count 5.1 10^3/uL (3.6-10.2)
[2024-02-19 10:01] LABS: Calcium 8.7 mg/dL (8.6-10.3); Creatinine, Serum 1.11 mg/dL (0.67-1.17); Magnesium 1.6 mg/dL (1.9-2.7); Potassium 5.5 mmol/L (3.5-5.0)
[2024-02-19] MEDS: Magnesium Sulfate 2 gm BAG 2 GM/50 ML BAG IVPB ONE (12:22)
[2024-02-19] MEDS: SODIUM ZIRCONIUM CYCLOSILICATE 5 GM PACKET PO ONE (14:15)
[2024-02-19] MEDS: Magnesium Sulfate IV 1GM/100ML 1 GM/100 ML BAG IV ONE (14:15)
[2024-02-20 06:34] LABS: ABS Eosinophils 0.3 10^3/uL (0.0-0.5); ABS Lymphocytes 1.1 10^3/uL (1.0-4.8); ABS Monocytes 0.4 10^3/uL (0.0-1.1); ABS Neutrophils 2.6 10^3/uL (1.5-7.6); Eosinophil % 6.2 %; Hematocrit 27.8 % (38-53); Hemoglobin 8.9 g/dL (13.2-16.3); Lymphocyte % 25.4 %; Mean Corpuscular Hgb Conc 32.1 g/dL (31-36); Mean Corpuscular Volume 84.3 fL (80-97); Mean Platelet Volume 7.9 fL (7.5-11.2); Nucleated Red Blood Cells % 0.1 %/100WBC (0.0-0.8); Platelet Count 214 10^3/uL (150-450); Red Cell Distribution Width 20.2 % (12-17); White Blood Count 4.5 10^3/uL (3.6-10.2)
[2024-02-20 06:52] LABS: Calcium 8.5 mg/dL (8.6-10.3); Creatinine, Serum 1.16 mg/dL (0.67-1.17); Magnesium 1.9 mg/dL (1.9-2.7); Phosphorus 3.6 mg/dL (2.5-5.0); Potassium 4.7 mmol/L (3.5-5.0); eGFR CKD-EPI 67.3 (>60)
[2024-02-20] MEDS ORDERED: fentaNYL 100 mcg/2 ml 50 MCG/ML VIAL IV PRN (15:01)
[2024-02-20] MEDS ORDERED: Ondansetron 4 mg VIAL 2 MG/ML 2 ml VIAL IV PRN (15:01)
[2024-02-20] MEDS ORDERED: Naloxone 0.4 mg VIAL 0.4 mg/ml 1 ml VIAL IV PRN (15:01)
[2024-02-20] MEDS: Benzocaine/Menthol LOZ PO PRN (16:52)
[2024-02-21 05:30] LABS: Hematocrit 25.4 % (38-53); Hemoglobin 8.3 g/dL (13.2-16.3); Mean Corpuscular Hemoglobin 27.1 pg (27-33); Mean Corpuscular Hgb Conc 32.5 g/dL (31-36); Mean Corpuscular Volume 83.2 fL (80-97); Mean Platelet Volume 7.7 fL (7.5-11.2); Platelet Count 218 10^3/uL (150-450); Red Blood Count 3.05 10^6/uL (4.06-5.63); Red Cell Distribution Width 20.1 % (12-17); White Blood Count 4.8 10^3/uL (3.6-10.2)
[2024-02-21 05:49] LABS: Calcium 8.5 mg/dL (8.6-10.3); Creatinine, Serum 1.17 mg/dL (0.67-1.17); Magnesium 1.8 mg/dL (1.9-2.7); Potassium 4.6 mmol/L (3.5-5.0); eGFR CKD-EPI 66.6 (>60)
[2024-02-21] MEDS ORDERED: Lactated Ringers 1000 ml BAG 1,000 ML IV SCH (06:00)
[2024-02-21] MEDS ORDERED: Buffered Lidocaine 1% SYRIN 1 ml INTRADERM ONE (06:00)
[2024-02-21] MEDS ORDERED: Famotidine IV 10 MG/ML 2 ml VIAL (20 mg) IV ONE (06:00)
[2024-02-21] MEDS: Magnesium Sulfate 2 gm BAG 2 GM/50 ML BAG IVPB ONE (07:31)
[2024-02-22 06:49] LABS: Hematocrit 27.2 % (38-53); Hemoglobin 8.8 g/dL (13.2-16.3); Mean Corpuscular Hemoglobin 27.1 pg (27-33); Mean Corpuscular Hgb Conc 32.2 g/dL (31-36); Mean Corpuscular Volume 84.1 fL (80-97); Mean Platelet Volume 7.5 fL (7.5-11.2); Platelet Count 224 10^3/uL (150-450); Red Blood Count 3.24 10^6/uL (4.06-5.63); Red Cell Distribution Width 20.1 % (12-17); White Blood Count 5.8 10^3/uL (3.6-10.2)
[2024-02-22 07:26] LABS: Calcium 8.5 mg/dL (8.6-10.3); Creatinine, Serum 1.2 mg/dL (0.67-1.17); Magnesium 1.9 mg/dL (1.9-2.7); Phosphorus 3.7 mg/dL (2.5-5.0); Potassium 4.9 mmol/L (3.5-5.0); eGFR CKD-EPI 64.7 (>60)
[2024-02-22 07:30] LABS: INR 1.14 (0.83-1.13)
[2024-02-22 13:57] VITALS: BP 133/76
== END 2024-02-22 17:30 | disposition home or self-care (01) | DRG 853 ==
LOC: ED 09:55 → SSU 18:28 → SUATTDRO 18:28 → EDHOLD 18:28 → ICU 19:12 → SSU 02-13 17:47
PROVIDERS: ADMIT Hospitalist; ATTEND Hospitalist

== ENCOUNTER 2024-03-30 20:02 | Inpatient (IN) ==
[2024-03-30 21:41] LABS: ABS Basophils 0.1 10^3/uL (0.0-0.1); ABS Eosinophils 0.4 10^3/uL (0.0-0.5); ABS Lymphocytes 1.1 10^3/uL (1.0-4.8); ABS Monocytes 0.8 10^3/uL (0.0-1.1); ABS Neutrophils 7.6 10^3/uL (1.5-7.6); Eosinophil % 3.8 %; Hematocrit 35.1 % (38-53); Hemoglobin 11.1 g/dL (13.2-16.3); Lymphocyte % 11.2 %; Mean Corpuscular Hemoglobin 26.2 pg (27-33); Mean Corpuscular Hgb Conc 31.7 g/dL (31-36); Mean Corpuscular Volume 82.5 fL (80-97); Mean Platelet Volume 7.7 fL (7.5-11.2); Platelet Count 222 10^3/uL (150-450); Red Blood Count 4.26 10^6/uL (4.06-5.63); Red Cell Distribution Width 19.2 % (12-17)
[2024-03-30 21:51] LABS: Activated Partial Thrombo Time 34.7 seconds (26.0-38.0); INR 1.44 (0.85-1.14)
[2024-03-30] MEDS ORDERED: Vancomycin 2,000 MG in NS 0.9% 250 ml 250 ML IVPB SCH (22:00)
[2024-03-30] MEDS: NS 0.9% 1000 ml BAG 1,000 ML IV ONE (22:03)
[2024-03-30] MEDS: Piperacillin/Tazobac 3.375 BAG 3.375 GM/100 ML BAG IV ONE (22:03)
[2024-03-30 22:13] LABS: Albumin 4.1 g/dL (3.2-5.2); C Reactive Protein 13.58 mg/L (<8.01); Creatinine, Serum 1.94 mg/dL (0.67-1.17); Potassium 4.6 mmol/L (3.5-5.0); Total Bilirubin 0.5 mg/dL (0.2-1.0); Total Protein 8.1 g/dL (6.4-8.9); eGFR CKD-EPI 36.3 (>60)
[2024-03-30 23:02] LABS: High Sensitivity Troponin 1 Hr 6 pg/mL (<20)
[2024-03-31] MEDS: Iodixanol (CONTRAST) 320 MG/ML 100 ML SDV IV ONE (00:16)
[2024-03-31] MEDS: Vancomycin 2,000 MG in NS 0.9% 500 ml BAG 500 ML IVPB ONE ×2 (00:26→18:00)
[2024-03-31] MEDS: NS 0.9% 500 ml BAG 500 ML IV ONE (00:43)
[2024-03-31] MEDS: Norepinephrine 4 MG/250mL D5W 4,000 MCG/250 ML BAG IV SCH ×2 (01:25→02:44)
[2024-03-31 01:57] LABS: Magnesium 1.9 mg/dL (1.9-2.7)
[2024-03-31] MEDS ORDERED: Dextrose 50% Syringe 50 ml 25 GM/50 ML SYRINGE IV PUSH PRN (02:34)
[2024-03-31] MEDS ORDERED: Vancomycin per Pharmacy 1 EA NOTE FOLLOW UP SCH (05:00)
[2024-03-31] MEDS ORDERED: Zosyn per Pharmacy NOTE FOLLOW UP SCH (05:00)
[2024-03-31] MEDS: ZOSYN 3.375 GM x ONE DOSE over 30 miuntes IV (05:33)
[2024-03-31 06:22] LABS: Albumin 3.3 g/dL (3.2-5.2); Calcium 7.8 mg/dL (8.6-10.3); Creatinine, Serum 1.97 mg/dL (0.67-1.17); Globulin 3.3 g/dL (2-4); Magnesium 1.8 mg/dL (1.9-2.7); Total Bilirubin 0.7 mg/dL (0.2-1.0); Total Protein 6.6 g/dL (6.4-8.9); eGFR CKD-EPI 35.7 (>60)
[2024-03-31 06:54] LABS: ABS Eosinophils 0.1 10^3/uL (0.0-0.5); ABS Lymphocytes 0.7 10^3/uL (1.0-4.8); ABS Monocytes 0.5 10^3/uL (0.0-1.1); ABS Neutrophils 10.5 10^3/uL (1.5-7.6); Eosinophil % 1.1 %; Hematocrit 31.4 % (38-53); Hemoglobin 10.1 g/dL (13.2-16.3); Lymphocyte % 6.2 %; Mean Corpuscular Hemoglobin 26.6 pg (27-33); Mean Corpuscular Hgb Conc 32.2 g/dL (31-36); Mean Corpuscular Volume 82.4 fL (80-97); Mean Platelet Volume 7.9 fL (7.5-11.2); Platelet Count 200 10^3/uL (150-450); Red Blood Count 3.81 10^6/uL (4.06-5.63); Red Cell Distribution Width 19.2 % (12-17); White Blood Count 11.9 10^3/uL (3.6-10.2)
[2024-03-31 08:38] LABS: Urine Appearance Clear; Urine Bilirubin Negative (Negative); Urine Blood Negative (Negative); Urine Color Light-Yellow; Urine Glucose 2+ (>=150 mg/dL) (Negative); Urine Ketones Negative (Negative); Urine Nitrite Negative (Negative); Urine Protein 1+ (>=30 mg/dL) (Negative); Urine Specific Gravity 1.041 (1.002-1.030); Urine Urobilinogen Negative (Negative); Urine pH 5.5 (5.0-8.0)
[2024-03-31 09:04] LABS: Urine Bacteria Absent /HPF (Absent); Urine Red Blood Cell 1+(3-5/hpf) /HPF (0-Trace); Urine Squamous Epithelial Cell Present /HPF (Absent); Urine White Blood Cell 3+(>20/hpf) /HPF (0-Trace)
[2024-03-31] MEDS: ZOSYN 3.375 GM Q8H per EXTENDED INFUSION IV SCH ×2 (10:14→19:09)
[2024-03-31] MEDS: CMCS: DAPAGLIFLOZIN 10 MG TAB (NF) PO SCH (10:14)
[2024-03-31] MEDS ORDERED: Norepinephrine 4 MG/250mL D5W 4,000 MCG/250 ML BAG IV ONE (13:21)
[2024-03-31] MEDS: Vancomycin Random Level NOTE FOLLOW UP ONE (16:43)
[2024-03-31] MEDS ORDERED: Metoprolol Tartrate 5 mg VIAL 5 ml VIAL (1 mg/ml) IV PRN (22:14)
[2024-03-31] MEDS: Metoprolol Tartrate 5 mg VIAL 5 ml VIAL (1 mg/ml) IV PRN (22:26)
[2024-04-01] MEDS: Lactated Ringers 1000 ml BAG 500 ML IV ONE (00:13)
[2024-04-01 05:28] LABS: ABS Eosinophils 0.2 10^3/uL (0.0-0.5); ABS Lymphocytes 1.1 10^3/uL (1.0-4.8); ABS Monocytes 0.9 10^3/uL (0.0-1.1); ABS Neutrophils 12.5 10^3/uL (1.5-7.6); Eosinophil % 1.7 %; Hematocrit 30.6 % (38-53); Lymphocyte % 7.7 %; Mean Corpuscular Hemoglobin 26.6 pg (27-33); Mean Corpuscular Hgb Conc 32.6 g/dL (31-36); Mean Corpuscular Volume 81.6 fL (80-97); Mean Platelet Volume 7.6 fL (7.5-11.2); Platelet Count 190 10^3/uL (150-450); Red Blood Count 3.75 10^6/uL (4.06-5.63); Red Cell Distribution Width 19.4 % (12-17); White Blood Count 14.8 10^3/uL (3.6-10.2)
[2024-04-01 05:45] LABS: Albumin 3.1 g/dL (3.2-5.2); Albumin/Globulin Ratio 0.9 (1-3); Calcium 8.3 mg/dL (8.6-10.3); Creatinine, Serum 2.1 mg/dL (0.67-1.17); Globulin 3.3 g/dL (2-4); Magnesium 1.9 mg/dL (1.9-2.7); Potassium 3.8 mmol/L (3.5-5.0); Total Bilirubin 0.8 mg/dL (0.2-1.0); Total Protein 6.4 g/dL (6.4-8.9)
[2024-04-01] MEDS ORDERED: Metoprolol Tartrate 5 mg VIAL 5 ml VIAL (1 mg/ml) IV PRN (11:30)
[2024-04-01] MEDS ORDERED: Vancomycin Random Level NOTE FOLLOW UP ONE (12:00)
[2024-04-02 04:55] LABS: ABS Eosinophils 0.6 10^3/uL (0.0-0.5); ABS Monocytes 0.4 10^3/uL (0.0-1.1); ABS Nucleated RBC 0.01 10^3/ul; Hematocrit 29.2 % (38-53); Hemoglobin 9.4 g/dL (13.2-16.3); Lymphocyte % 11.9 %; Mean Corpuscular Hemoglobin 26.5 pg (27-33); Mean Corpuscular Hgb Conc 32.2 g/dL (31-36); Mean Corpuscular Volume 82.1 fL (80-97); Mean Platelet Volume 7.8 fL (7.5-11.2); Nucleated Red Blood Cells % 0.1 %/100WBC (0.0-0.8); Platelet Count 170 10^3/uL (150-450); Red Blood Count 3.56 10^6/uL (4.06-5.63); Red Cell Distribution Width 19.6 % (12-17); White Blood Count 8.1 10^3/uL (3.6-10.2)
[2024-04-02 05:36] LABS: Albumin 3.1 g/dL (3.2-5.2); Albumin/Globulin Ratio 0.9 (1-3); Calcium 8.2 mg/dL (8.6-10.3); Creatinine, Serum 1.9 mg/dL (0.67-1.17); Globulin 3.3 g/dL (2-4); Potassium 4.3 mmol/L (3.5-5.0); Total Bilirubin 0.5 mg/dL (0.2-1.0); Total Protein 6.4 g/dL (6.4-8.9); eGFR CKD-EPI 37.2 (>60)
[2024-04-02 13:37] VITALS: BP 95/57
== END 2024-04-02 16:15 | disposition home or self-care (01) | DRG 564 ==
LOC: ED 20:02 → EDHOLD 03-31 01:23 → ICU 03-31 14:17
PROVIDERS: ADMIT Internal Medicine Critical Care Medicine; ATTEND Internal Medicine Critical Care Medicine